=== PATIENT | male | born 1980 ===

== ENCOUNTER 2017-06-09 10:24 | Emergency (ER) | payer SELFPAY ==
[2017-06-09 10:38] VITALS: BP 132/81; PULSE 67; RESP 18; TEMP 98; O2SAT 98
--- NOTE | 2017-06-09 11:32 | C.PDOC ---
History Of Present Illness 36 y/o male with no sig pmh c/o small pustules to right upper arm that started 3 days after getting a tattoo there 2 weeks ago. these small pustules have spread to upper thighs, abdomen, left arm. pt sts sometimes itchy. denies fever or chills. Time Seen by Provider: 06/09/17 11:01 Chief Complaint (Nursing): Abnormal Skin Integrity History Per: Patient History/Exam Limitations: no limitations Onset/Duration Of Symptoms: Days (10) Current Symptoms Are (Timing): Worse Quality Of Symptoms: Painful, Itching Severity: Moderate Past Medical History Reviewed: Historical Data, Nursing Documentation, Vital Signs Vital Signs: Last Vital Signs Temp 98 F 06/09/17 10:36 Pulse 67 06/09/17 10:36 Resp 18 06/09/17 10:36 BP 132/81 06/09/17 10:36 Pulse Ox 98 06/09/17 11:33 - Medical History PMH: No Chronic Diseases Family History: States: Unknown Family Hx - Social History Hx Alcohol Use: No Hx Substance Use: No - Immunization History Hx Tetanus Toxoid Vaccination: No Hx Influenza Vaccination: No Hx Pneumococcal Vaccination: No Review Of Systems Constitutional: Negative for: Fever, Chills Skin: Positive for: Rash Neurological: Negative for: Weakness, Numbness Physical Exam - Physical Exam Appears: Non-toxic, No Acute Distress Skin: Warm, Dry, Rash (scattered small 1 mm pustules and papules to right upper arm, bilateral hands, abdomen, upper bilateral thighs. no erythema or warmth. ) ED Course And Treatment O2 Sat by Pulse Oximetry: 98 Medical Decision Making Medical Decision Making: pt with multiple small pustules on arm, legs, abdomen and buttock s/p tattoo to right arm. will d/c with bactrim, f/u med clinic Disposition Counseled Patient/Family Regarding: Diagnosis, Need For Followup, Rx Given - Disposition Referrals: [facility] [Outside] Disposition: HOME/ ROUTINE Disposition Time: 11:30 Condition: GOOD Additional Instructions: Please take antibiotics as prescribed. Follow up in medical clinic. If rash worsens or you develop fever, return to ER for re-evaluation. Prescriptions: Sulfamethoxazole/Trimethoprim [Bactrim DS 800 mg-160 mg] 1 tab PO BID #20 tab Instructions: Skin Rash (DC) Forms: [facility] ([place]), General Discharge Instructions - Clinical Impression Clinical Impression: Skin lesion
== END 2017-06-09 11:43 | disposition home or self-care (01) ==
LOC: C.ER 10:24
DX: L98.8 Other specified disorders of the skin and subcutaneous tissue (principal)